=== PATIENT | female | born 2000 | race Caucasian/White ===

== ENCOUNTER 2021-04-30 15:46 | Outpatient (REF) | payer BC, SELFPAY ==
--- NOTE | ~2021-04-30 | XR_ITS ---
EXAMINATION: XR FINGER, LEFT CLINICAL INFORMATION: Pain left third finger COMPARISON: None TECHNIQUE: 3 views of the left third finger. FINDINGS: There is no visible acute fracture or dislocation. Especially no bony abnormality involving third digit. There is mild soft tissue swelling PIP joint third digit Joint spaces are maintained. XR/XR finger LT min 2V IMPRESSION: Moderate soft tissue swelling dorsal PIP joint third digit. No visible acute fracture or dislocation seen.
== END 2021-04-30 15:47 | disposition home or self-care (01) ==
LOC: HO.HMGCX 15:46
PROVIDERS: PCP Pediatrics; Visit Provider Hospitalist
DX: M79.645 Pain in left finger(s) (principal)
CPT/HCPCS: 73140

== ENCOUNTER 2021-07-09 14:38 | Emergency (ER) | payer BC, SELFPAY | END 2021-07-09 18:29 | disposition left against medical advice (07) | PROVIDERS: Emergency Provider Emergency Medicine | DX: R10.9 Unspecified abdominal pain (principal) ==

== ENCOUNTER 2021-10-03 11:21 | Outpatient (REF) | payer BC, SELFPAY ==
--- NOTE | ~2021-10-03 | XR_ITS ---
EXAMINATION: XR RIBS, RIGHT CLINICAL INFORMATION: Pleura dynamic COMPARISON: None TECHNIQUE: 3 views of the right ribs were obtained. FINDINGS: Lungs are clear. No consolidation, pneumothorax, or pleural effusion. The cardiomediastinal silhouette and pulmonary vasculature are normal. Osseous structures are unremarkable. No fractures are identified. Multiple views of right ribs reveal no visible fracture or bony abnormality. XR/XR ribs RT min 3V w [id number] IMPRESSION: Unremarkable chest exam.
== END 2021-10-03 11:22 | disposition home or self-care (01) ==
LOC: HO.HMGCX 11:21
PROVIDERS: Visit Provider Physician Assistant Medical
DX: R07.81 Pleurodynia (principal)
CPT/HCPCS: 71101